=== PATIENT | male | born 1970 | race Caucasian/White ===

== ENCOUNTER 2017-06-29 19:21 | Inpatient (IN) | payer OTHER ==
[~2017-06-29] VITALS: Ht 167.6 cm; Wt 81.3 kg
[~2017-06-29 19:21] MED LIST: SULF1TAB47 PO; Z.0.NO CURRENT MEDS
[2017-06-29 19:25] VITALS: BP 142/83; PULSE 78; RESP 18; TEMP 98.1; O2SAT 99
[2017-06-29] MEDS ORDERED: ceFAZolin 2 GM PREMIX 50 ML IV ONE (20:00)
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
[2017-06-29] MEDS ORDERED: MISCELLANEOUS NURSING INFORMATION XX SCH (20:30)
[2017-06-29] MEDS ORDERED: ACETAMINOPHEN/HYDROcodone 325 MG/5 MG TAB PO PRN (20:30)
[2017-06-29] MEDS ORDERED: CHLORHEXIDINE GLUCONATE 2 % 1 PACK (2 CLOTHS) TOP PRN (20:30)
[2017-06-29] MEDS ORDERED: ONDANSETRON HCL 4 MG/2 ML VIAL IV PUSH PRN (20:30)
[2017-06-29] MEDS ORDERED: LACTULOSE SYRUP 20 GM/30 ML CUP PO PRN (20:30)
[2017-06-29] MEDS ORDERED: SENNOSIDES 8.6 MG TAB PO PRN (20:30)
[2017-06-29] MEDS ORDERED: BISACODYL 10 MG SUPP RECTAL PRN (20:30)
[2017-06-29] MEDS ORDERED: MAGNESIUM HYDROXIDE SUSP 30 ML CUP PO PRN (20:30)
[2017-06-29] MEDS ORDERED: ACETAMINOPHEN 1000 MG/100 ML 100 ML IV PRN (20:30)
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
[2017-06-29] MEDS ORDERED: SODIUM CHLOR 0.9% 1000 ML INJ 1,000 ML IV SCH (21:00)
[2017-06-29] MEDS: DOCUSATE SODIUM 50 MG/SENNA 8.6 MG TAB PO SCH (21:00)
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
[2017-06-29 22:01] VITALS: BP 134/78; PULSE 66; RESP 18; O2SAT 100
[2017-06-29] MEDS: oxyCODONE/ACETAMINOPHEN 5 MG/325 MG TAB PO PRN (22:02)
[2017-06-29 22:30] VITALS: BP 137/78; PULSE 62; RESP 18; TEMP 98.6; O2SAT 99
[2017-06-30] VITALS (12 sets, daily range): BP systolic 126–143; BP diastolic 70–86; PULSE 60–85; RESP 12–18; TEMP 97.8–98.8; O2SAT 97–100
[2017-06-30] MEDS: CHLORHEXIDINE GLUCONATE 2 % 1 PACK (2 CLOTHS) TOP SCH ×2 (04:00→23:33)
[2017-06-30 05:30] LABS: AUTOMATED NEUTROPHIL # 7.3 TH/MM3 (1.8-7.7); BASOPHIL % 0.2 % (0.0-2.0); EOSINOPHIL # 0.1 TH/MM3 (0-0.4); EOSINOPHIL % 1.5 % (0.0-4.0); HEMATOCRIT 38.3 % (39.0-51.0); HEMOGLOBIN 13.2 GM/DL (13.0-17.0); LYMPH % 12.6 % (9.0-44.0); LYMPHOCYTE # 1.2 TH/MM3 (1.0-4.8); MEAN CELL VOLUME 92.1 FL (80.0-100.0); MEAN CORPUSCULAR HEMOGLOBIN 31.8 PG (27.0-34.0); MEAN CORPUSCULAR HGB CONC 34.5 % (32.0-36.0); MEAN PLATELET VOLUME 8.1 FL (7.0-11.0); MONO % 8.8 % (0.0-8.0); MONOCYTE # 0.8 TH/MM3 (0-0.9); NEUT % 76.9 % (16.0-70.0); PLATELET COUNT 213 TH/MM3 (150-450); RED BLOOD COUNT 4.16 MIL/MM3 (4.50-5.90); RED CELL DISTRIBUTION WIDTH 13.8 % (11.6-17.2); WHITE BLOOD COUNT 9.4 TH/MM3 (4.0-11.0)
[2017-06-30 05:54] LABS: BICARBONATE 27.2 MEQ/L (21.0-32.0); CALCIUM 9.1 MG/DL (8.5-10.1); CREATININE 0.6 MG/DL (0.60-1.30)
[2017-06-30] MEDS: oxyCODONE/ACETAMINOPHEN 5 MG/325 MG TAB PO PRN ×3 (08:10→20:17)
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
[2017-06-30] MEDS: FAMOTIDINE 20 MG TAB PO SCH ×2 (09:00→20:17)
[2017-06-30] MEDS: DOCUSATE SODIUM 50 MG/SENNA 8.6 MG TAB PO SCH ×2 (09:00→20:02)
[2017-06-30] MEDS: SODIUM CHLORIDE 1 GRAM TAB PO SCH (10:48)
[2017-06-30] MEDS: NICOTINE 14 MG/24 HR PATCH T-DERMAL SCH (10:48)
--- NOTE | 2017-06-30 10:52 | RADRPT ---
EXAM DATE/TIME: 06/30/2017 10:32 [facility] COMPARISON: CT BRAIN W/O CONTRAST, June 29, 2017, 20:53. INDICATIONS : Follow up bleed. RADIATION DOSE: 36.79 CTDIvol (mGy) MEDICAL HISTORY : None SURGICAL HISTORY : Appendectomy. ENCOUNTER: Initial ACUITY: 2 days PAIN SCALE: 3/10 LOCATION: Bilateral cranial TECHNIQUE: Multiple contiguous axial images were obtained of the head. Using automated exposure control and adj ustment of the mA and/or kV according to patient size, radiation dose was kept as low as reasonably a chievable to obtain optimal diagnostic quality images. DICOM format image data is available electro nically for review and comparison. FINDINGS: A small acute epidural hematoma is again noted along the right temporoparietal lobe and measures 6 mm in greatest width. Some pneumocephalus is noted within these epidural hematoma and is stable. Underl aundrea skull fracture involving the right temporoparietal skull is stable. No new midline shift is note d. The ventricles, sulci and cisterns are stable. No acute intraparenchymal hemorrhage is noted. No a cute infarct is noted CONCLUSION: 1. Small acute epidural hematoma is again noted along the right temporoparietal lobe and measures 6 m m in greatest width. Some pneumocephalus is noted within these epidural hematoma and is stable. Under lying skull fracture involving the right temporoparietal skull is stable. Gianluca Brown MD on June 30, 2017 at 10:46 Board Certified Radiologist. This report was verified electronically.
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
[2017-06-30] MEDS: REMOVE OLD PATCH T-DERMAL SCH (23:33)
[2017-07-01 01:15] VITALS: BP 124/79; PULSE 67; RESP 18; TEMP 98; O2SAT 98
[2017-07-01 03:45] VITALS: BP 132/67; PULSE 60; RESP 17; TEMP 97.5; O2SAT 96
[2017-07-01 05:37] LABS: AUTOMATED NEUTROPHIL # 6.7 TH/MM3 (1.8-7.7); BASOPHIL % 0.2 % (0.0-2.0); EOSINOPHIL # 0.3 TH/MM3 (0-0.4); EOSINOPHIL % 3.5 % (0.0-4.0); HEMATOCRIT 38.9 % (39.0-51.0); HEMOGLOBIN 13.4 GM/DL (13.0-17.0); LYMPH % 13.9 % (9.0-44.0); LYMPHOCYTE # 1.3 TH/MM3 (1.0-4.8); MEAN CELL VOLUME 92.4 FL (80.0-100.0); MEAN CORPUSCULAR HEMOGLOBIN 31.9 PG (27.0-34.0); MEAN CORPUSCULAR HGB CONC 34.5 % (32.0-36.0); MEAN PLATELET VOLUME 7.8 FL (7.0-11.0); MONO % 8.7 % (0.0-8.0); MONOCYTE # 0.8 TH/MM3 (0-0.9); NEUT % 73.7 % (16.0-70.0); PLATELET COUNT 199 TH/MM3 (150-450); RED BLOOD COUNT 4.21 MIL/MM3 (4.50-5.90); RED CELL DISTRIBUTION WIDTH 13.9 % (11.6-17.2); WHITE BLOOD COUNT 9.1 TH/MM3 (4.0-11.0)
[2017-07-01 06:03] LABS: ALBUMIN 3.2 GM/DL (3.4-5.0); AST (GOT) 12 U/L (15-37); BICARBONATE 28.5 MEQ/L (21.0-32.0); BLOOD UREA NITROGEN 7 MG/DL (7-18); CALCIUM 8.7 MG/DL (8.5-10.1); CHLORIDE 103 MEQ/L (98-107); GLOMERULAR FILTRATION RATE 144 ML/MIN (>89); GLUCOSE,RANDOM 113 MG/DL (74-106); SODIUM (NA) 137 MEQ/L (136-145)
[2017-07-01 06:06] LABS: ALKALINE PHOSPHATASE 66 U/L (45-117); ALT (GPT) 18 U/L (12-78); TOTAL BILIRUBIN ADULT 0.3 MG/DL (0.2-1.0); TOTAL PROTEIN 6.4 GM/DL (6.4-8.2)
[2017-07-01 08:00] VITALS: BP 133/83; PULSE 57; RESP 17; TEMP 97.1; O2SAT 95
[2017-07-01] MEDS: DOCUSATE SODIUM 50 MG/SENNA 8.6 MG TAB PO SCH ×2 (08:40→20:31)
[2017-07-01] MEDS: NICOTINE 14 MG/24 HR PATCH T-DERMAL SCH (08:40)
[2017-07-01] MEDS: FAMOTIDINE 20 MG TAB PO SCH ×2 (08:40→20:31)
[2017-07-01] MEDS: oxyCODONE/ACETAMINOPHEN 5 MG/325 MG TAB PO PRN ×2 (08:40→14:43)
[2017-07-01] MEDS: SODIUM CHLORIDE 1 GRAM TAB PO SCH (08:40)
--- NOTE | 2017-07-01 08:40 | RADRPT ---
EXAM DATE/TIME: 07/01/2017 08:21 [place] Corrected on: July 02, 2017; [facility] COMPARISON: CT BRAIN W/O CONTRAST, June 30, 2017, 10:32. INDICATIONS : Follow up bleed. RADIATION DOSE: 56.35 CTDIvol (mGy) MEDICAL HISTORY : Bleed SURGICAL HISTORY : Appendectomy. ENCOUNTER: Subsequent ACUITY: 2 days PAIN SCALE: 0/10 LOCATION: cranial TECHNIQUE: Multiple contiguous axial images were obtained of the head. Using automated exposure control and adj ustment of the mA and/or kV according to patient size, radiation dose was kept as low as reasonably a chievable to obtain optimal diagnostic quality images. DICOM format image data is available electro nically for review and comparison. FINDINGS: There is a stable small acute epidural hematoma along the right temporoparietal lobe which measures 6 mm in greatest width. Some pneumocephalus is still noted within this epidural collection. Right temp oroparietal skull fracture is stable. No midline shift is noted. There is an area of decreased attenu ation involving the left temporal lobe may represent edema related to contrecoup injury. No parenchym al hemorrhage is noted in this location. The ventricles are normal bilaterally. CONCLUSION: 1. Stable acute epidural hematoma along the right temporoparietal lobe measuring 6 mm with some pneum ocephalus. 2. Right temporoparietal skull fracture is stable. 3. Area decreased attenuation involving the left temporal lobe which may represent edema related to c ontrecoup injury. Gianluca Brown MD on July 01, 2017 at 8:32 Board Certified Radiologist. This report was verified electronically. Gianluca Brown MD on July 02, 2017 at 9:51 Board Certified Radiologist. This report was verified electronically.
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
[2017-07-01 11:47] VITALS: BP 138/84; PULSE 61; RESP 18; TEMP 97.4; O2SAT 97
[2017-07-01] MEDS ORDERED: ceFAZolin 2 GM PREMIX 50 ML IV ONE (13:00)
[2017-07-01 15:36] VITALS: BP 140/83; PULSE 60; RESP 17; TEMP 97.8; O2SAT 98
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
[2017-07-01 20:00] VITALS: BP 134/83; PULSE 62; RESP 15; TEMP 97; O2SAT 96
[2017-07-01] MEDS: CEPHALEXIN MONOHYDRATE 500 MG CAP PO SCH (20:31)
[2017-07-01] MEDS: REMOVE OLD PATCH T-DERMAL SCH (20:32)
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
[2017-07-02] VITALS: BP 131/80; PULSE 58; RESP 14; TEMP 97.3; O2SAT 97
[2017-07-02] MEDS: oxyCODONE/ACETAMINOPHEN 5 MG/325 MG TAB PO PRN ×2 (00:21→09:11)
[2017-07-02] MEDS: CHLORHEXIDINE GLUCONATE 2 % 1 PACK (2 CLOTHS) TOP SCH (04:00)
[2017-07-02 07:00] LABS: CALCIUM 8.8 MG/DL (8.5-10.1); CREATININE 0.53 MG/DL (0.60-1.30)
[2017-07-02] MEDS ORDERED: OXYC1TAB63 PO (08:05)
[2017-07-02] MEDS ORDERED: CEPH500C PO (08:05)
[2017-07-02] MEDS ORDERED: PERI PO (08:05)
[2017-07-02 08:24] VITALS: BP 135/82; PULSE 56; RESP 18; TEMP 97.9; O2SAT 97
[2017-07-02] MEDS: CEPHALEXIN MONOHYDRATE 500 MG CAP PO SCH (09:10)
[2017-07-02] MEDS: NICOTINE 14 MG/24 HR PATCH T-DERMAL SCH (09:10)
[2017-07-02] MEDS: DOCUSATE SODIUM 50 MG/SENNA 8.6 MG TAB PO SCH (09:10)
[2017-07-02] MEDS: FAMOTIDINE 20 MG TAB PO SCH (09:11)
[2017-07-02] MEDS: SODIUM CHLORIDE 1 GRAM TAB PO SCH (09:11)
--- NOTE | 2017-07-02 09:53 | RADRPT ---
EXAM DATE/TIME: 07/02/2017 09:37 [place] COMPARISON: CT BRAIN W/O CONTRAST, July 01, 2017, 8:21. INDICATIONS : Follow up bleed RADIATION DOSE: 56.35 CTDIvol (mGy) MEDICAL HISTORY : None SURGICAL HISTORY : Appendectomy. ENCOUNTER: Subsequent ACUITY: 3 days PAIN SCALE: 2/10 LOCATION: cranial TECHNIQUE: Multiple contiguous axial images were obtained of the head. Using automated exposure control and adj ustment of the mA and/or kV according to patient size, radiation dose was kept as low as reasonably a chievable to obtain optimal diagnostic quality images. DICOM format image data is available electro nically for review and comparison. FINDINGS: There is a persistent stable acute epidural hematoma along the right temporoparietal lobe which measu res 6 mm in greatest width. Some pneumocephalus is still noted within this epidural collection. Right temporoparietal skull fracture is stable. No midline shift is noted. There is an area decreased atte nuation involving the left temporal lobe which may represent edema related to contrecoup injury. No a cute intraparenchymal hemorrhage is noted. The ventricles remain unremarkable. CONCLUSION: 1. Persistent stable acute epidural hematoma along the right temporoparietal lobe measuring 6 mm in w idth with some pneumocephalus. 2. Right temporoparietal skull fracture is stable. 3. Area of decreased attenuation involving the left temporal lobe which may represent edema related t o contrecoup injury. Gianluca Brown MD on July 02, 2017 at 9:48 Board Certified Radiologist. This report was verified electronically.
[2017-07-02 12:06] VITALS: BP 126/77; PULSE 57; RESP 17; TEMP 98.6; O2SAT 94
--- NOTE | 2017-07-02 12:48 | HHI.NSPN ---
History Chief Complaint: Right arm pain Interval History According to the patient's family as well as nursing staff, he has been less agitated today. No definite confusion. The patient has no complaint of headache, dizziness, nausea or vomiting. He states that he is ambulating well and tolerating diet without difficulty. He has no complaint of significant neck or back pain. He still has some right upper extremity discomfort. Exam Results Vital Signs Date Time Temp Pulse Resp B/P (MAP) Pulse Ox O2 Delivery O2 Flow Rate FiO2 07/02/17 12:06 98.6 57 17 126/77 (93) 94 07/01/17 21:00 Room Air 06/30/17 07:32 21 Physical Examination GENERAL: He is in bed, awake and alert, no apparent distress SKIN: Right frontotemporal scalp wound w/intact dressing, scattered facial abrasions and ecchymosis. Skin warm & dry. Scattered abrasions to extremities. It is noted that the patient's sheets are moist. HEENT: Right frontotemporal scalp wound. No CSF otorrhea or rhinorrhea MUSCULOSKELETAL: SOLOMON spontaneously. RUE in cast. NEUROLOGICAL: Awake and alert Fully oriented Speech clear & appropriate. Follows simple commands w/o difficulty. CN II-XII appear grossly intact. Sensation intact to light touch to all extremities. Muscle strength is 5/5 to all major flexion & extension muscle groups, to include wrist flexors & extensors and hand intrinsics & extrinsics, of the LUE & BLE. The patient is able move the fingers of the right hand w/o difficulty and is able to pick the right arm up off the bed. Lab, Micro, Other Results 07/02/2017 CT scan head images reviewed by the undersigned. There is stable right temporoparietal small subdural hematoma without significant mass effect and mild left temporal contusion without hemorrhage or significant mass effect. Head CT 07/02/17 0000 Signed Impressions: Service Date/Time: June 09:37 - CONCLUSION: 1. Persistent stable acute epidural hematoma along the right temporoparietal lobe measuring 6 mm in width with some pneumocephalus. 2. Right temporoparietal skull fracture is stable. 3. Area of decreased attenuation involving the left temporal lobe which may represent edema related to contrecoup injury. Gianluca Brown MD Radius/Ulna X-Ray 06/29/17 0000 Signed Impressions: Service Date/Time: Thursday, June 29, 2017 20:33 - CONCLUSION: Oblique nondisplaced fracture involving the distal one third ulnar. Luis Fernando Blackwood MD Hand X-Ray 06/29/17 0000 Signed Impressions: Service Date/Time: Thursday, June 29, 2017 20:33 - CONCLUSION: No acute fracture or joint dislocation. Luis Fernando Blackwood MD Cervical Spine CT 06/29/17 0000 Signed Impressions: Service Date/Time: Thursday, June 29, 2017 20:53 - CONCLUSION: 1. No acute bony fracture. 2. Primary bony degenerative changes with disc degeneration and disc space narrowing involving the mid to lower cervical spine. 3. Mild diffuse broad-based bulging with disc osteophyte complex at C5-6. 4. Mild diffuse broad-based bulging C6-7. Luis Fernando Blackwood MD Medical Decision Making Impression and Plan Impression: 1. Traumatic brain injury with thin right temporoparietal subdural hematoma with small amount of pneumocephalus. 2. Right frontotemporal parietal skull fracture, closed, nondepressed 3. Mild left temporal contusion without hemorrhage or significant mass effect. Recommendations: Findings were discussed with the patient and his in the room today. His follow-up CT scan is stable. He has no focal neurologic deficit on today's exam He may discharge home from a neurosurgical standpoint He is to avoid aspirin, NSAIDs, any other antiplatelet agents or anticoagulation , vitamin E for the next 2 weeks. I will see him back for follow-up in approximately 3-[address] scan of the head to make certain that he has no chronic subdural hematoma formation. Joseph Elena MD Jul 02, 2017 12:48
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
== END 2017-07-02 14:44 | disposition home or self-care (01) | DRG 562 ==
LOC: NEPC 19:21 → MERGE 19:59 → NEDA 19:59 → N03A 22:30 → N06A 06-30 23:28
PROVIDERS: ADMIT Surgery Trauma Surgery; ATTEND Surgery Trauma Surgery
PROC: 0HQ0XZZ Repair Scalp Skin, External Approach (ICD-10-PCS; principal; 2017-06-29)
DX: S52.234A Nondisplaced oblique fracture of shaft of right ulna, initial encounter for closed fracture (principal); S06.5X0A Traumatic subdural hemorrhage without loss of consciousness, initial encounter; I10 Essential (primary) hypertension; S02.0XXA Fracture of vault of skull, initial encounter for closed fracture; S01.01XA Laceration without foreign body of scalp, initial encounter; F17.210 Nicotine dependence, cigarettes, uncomplicated; Y00.XXXA Assault by blunt object, initial encounter; E11.9 Type 2 diabetes mellitus without complications; R40.2410 Glasgow coma scale score 13-15, unspecified time; M54.2 Cervicalgia
CPT/HCPCS: 12001; 70450; 72125; 73090; 73130; 80048; 80053; 85025; 94150; J0690; J2405; J7030; L0150; L0172